=== PATIENT | female | born 1965 | race Caucasian/White ===

== ENCOUNTER 2023-04-24 09:46 | Emergency (ER) | payer MEDICARE, OTHER ==
[2023-04-24 10:04] VITALS: RESP 18
[2023-04-24] MEDS ORDERED: LIDOCAINE 5% PATCH TOPICAL ONE (10:18)
[2023-04-24] MEDS ORDERED: KETOROLAC 15 MG/ML 1 ML VIAL IM STA (10:18)
--- NOTE | 2023-04-24 10:55 | XR ---
EXAMINATION TYPE: XR ribs LT w pa chest xray DATE OF EXAM: 04/24/2023 10:31 AM CLINICAL INDICATION:Female, 58 years old with history of Pain; [facility] COMPARISON: Same day radiograph TECHNIQUE: XR ribs LT w pa chest xray; Frontal and oblique views of the ribs with frontal chest radio graph. FINDINGS: The ribs have a normal appearance. No evidence of fracture. Overall, the lungs are clear. The cardiac silhouette is normal in size. The remaining osseous structures are intact. IMPRESSION: No acute osseous pathology.
--- NOTE | 2023-04-24 10:55 | XR ---
EXAMINATION TYPE: XR thoracic spine complete DATE OF EXAM: 04/24/2023 10:31 AM CLINICAL INDICATION:Female, 58 years old with history of Pain; H COMPARISON: Radiograph same day TECHNIQUE: XR thoracic spine complete views of the thoracic spine in Frontal and lateral projections. FINDINGS: No evidence of acute fracture. There is scattered multilevel disk space narrowing without loss of ve rtebral body height. There is normal alignment of the thoracic vertebral bodies. Scattered osteophyte formation along the anterior and lateral aspects of the vertebral bodies. Neural foramen are patent given limitations of this exam. Spinal canal appears patent. Atherosclerosis of the arterial vasculat ure. Mild hepatomegaly. IMPRESSION: 1. No acute osseous pathology. 2. 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
--- NOTE | 2023-04-24 10:58 | ED ---
Back Pain HPI - General Chief Complaint: Back Pain/Injury Stated Complaint: Back Pain, mostly on L side Time Seen by Provider: 04/24/23 09:57 Source: patient, RN notes reviewed Mode of arrival: ambulatory Limitations: no limitations - History of Present Illness Initial Comments: This is a 58-year-old female who presents to the emergency department for pain on her left side. States that this started 1.5 weeks ago. She went through a bout of bronchitis and also lifted something heavy shortly before this occurred, however she denies any specific injuries. Denies any loss of bowel/bladder control or saddle anesthesia. Pain does not go down the leg. She is not taking anything for management of her symptoms. - Related Data Previous Rx's Medication Instructions Recorded Ketorolac [Toradol] 10 mg PO Q6HR PRN #15 tab 04/24/23 Lidocaine 5% Patch [Lidoderm 5% 1 patch TOPICAL DAILY PRN #30 patch 04/24/23 Patch] Allergies Allergy/AdvReac Type Severity Reaction Status Date / Time ampicillin Allergy Rash/Hives Verified 04/24/23 09:53 Review of Systems ROS Statement: Those systems with pertinent positive or pertinent negative responses have been documented in the HPI. ROS Other: All systems not noted in ROS Statement are negative. Past Medical History Past Medical History: No Reported History History of Any Multi-Drug Resistant Organisms: None Reported Past Surgical History: Section Past Psychological History: Anxiety, Depression Smoking Status: Current every day smoker Past Alcohol Use History: None Reported Past Drug Use History: None Reported General Exam Limitations: no limitations General appearance: alert, in no apparent distress Head exam: Present: atraumatic, normocephalic, normal inspection Respiratory exam: Present: normal lung sounds bilaterally. Absent: respiratory distress, wheezes, rales, rhonchi, stridor Cardiovascular Exam: Present: regular rate, normal rhythm, normal heart sounds. Absent: systolic murmur, diastolic murmur, rubs, gallop, clicks GI/Abdominal exam: Present: soft, normal bowel sounds. Absent: distended, tenderness, guarding, rebound, rigid Back exam: Present: other (Left side near the base of the left ribcage) Neurological exam: Present: alert, oriented X3, CN II-XII intact Psychiatric exam: Present: normal affect, normal mood Skin exam: Present: warm, dry, intact, normal color. Absent: rash Course Vital Signs 04/24/23 04/24/23 09:49 12:24 Temperature 98.8 F 98.6 F Pulse Rate 68 76 Respiratory 18 18 Rate Blood Pressure 148/81 130/68 O2 Sat by Pulse 100 99 Oximetry Medical Decision Making - Medical Decision Making This is a 58-year-old female who presents to the emergency department for left- sided pain. Was pt. sent in by a medical professional or institution? @ -No Did you speak to anyone other than the patient for history? @ -No Did you review nursing and triage notes? @ -I disagree with the part about it being in the left lower back, when asked where it is, patient points to her left side, essentially to the inferior and lateral most aspects of the left rib cage. Were old charts reviewed? @ -No Differential Diagnosis? @ -Differential Side Pain: Muscle strain, UTI, rib fracture, pancreatitis, this is not meant to be an all- inclusive list. EKG interpreted by me (3pts min.)? @ -Not obtained X-rays interpreted by me (1pt min.)? @ -X-ray of the left rib cage, AP chest, and thoracic spine obtained. My interpretation identifies no evidence of any fractures. CT interpreted by me (1pt min.)? @ -Not obtained U/S interpreted by me (1pt. min.)? @ -Not obtained What testing was considered but not performed? (CT, X-rays, U/S, labs)? Why? @ -None What meds were considered but not given? Why? @ -None Did you discuss the management of the patient with other professionals? @ -No Did you reconcile home meds? @ -No Was smoking cessation discussed for >3mins.? @ -No Was critical care preformed (if so, how long)? @ -No Were there social determinants of health that impacted care today? How? (Homelessness, low income, unemployed, alcoholism, drug addiction, transportation, low edu. Level, literacy, decrease access to med. care, care home, rehab)? @ -No Was there de-escalation of care discussed even if they declined? (Discuss DNR or withdrawal of care, Hospice)? @ -No What co-morbidities impacted this encounter? (DM, HTN, Smoking, COPD, CAD, Cancer, CVA, Hep., AIDS, mental health diagnosis, sleep apnea, morbid obesity)? @ -None Was patient admitted / discharged? @ -Discharged. X-ray of the left rib cage with AP chest and thoracic spine obtained revealing degenerative changes without any acute process. Urinalysis has blood, due to the patient being on her period. Denies any urinary symptoms. She was treated with Toradol and a lidocaine patch, and essentially had resolution of symptoms. Advised that this is most likely musculoskeletal in nature. Prescription for Toradol and lidocaine patches provided with dosing instructions reviewed. Patient discharged home in stable condition with instructions to follow up with her primary care provider. Undiagnosed new problem with uncertain prognosis? @ -None Drug Therapy requiring intensive monitoring for toxicity (Heparin, Nitro, Insulin, Cardizem)? @ -None Were any procedures done? @ -None Diagnosis/symptom? @ -Left side pain Acute, or Chronic, or Acute on Chronic? @ -Acute Uncomplicated (without systemic symptoms) or Complicated (systemic symptoms)? @ -Uncomplicated Side effects of treatment? @ -None Exacerbation, Progression, or Severe Exacerbation] @ -Not applicable Poses a threat to life or bodily function? @ -No Return precautions reviewed in depth, the patient is instructed to return to the emergency department with any new, worsening, or concerning symptoms. Patient verbalized understanding. This case was discussed in detail with the attending ED physician, Dr. Corona. Presentation, findings, and treatment plan discussed in detail as well. - Lab Data Lab Results 04/24/23 Range/Units 10:33 Urine Color Colorless Urine Appearance Clear (Clear) Urine pH 6.0 (5.0-8.0) Ur Specific [place] 1.006 (1.001-1.035) Urine Protein Negative (Negative) Urine Glucose (UA) Negative (Negative) Urine Ketones Negative (Negative) Urine Blood Large H (Negative) Urine Nitrite Negative (Negative) Urine Bilirubin Negative (Negative) Urine Urobilinogen <2.0 (<2.0) mg/dL Ur Leukocyte Esterase Negative (Negative) Urine RBC 148 H (0-5) /hpf Urine WBC 2 (0-5) /hpf Ur Squamous Epith Cells <1 (0-4) /hpf Urine Bacteria Rare H (None) /hpf Urine Mucus Rare H (None) /hpf - Radiology Data Radiology results: report reviewed, image reviewed Disposition Clinical Impression: Left-sided back pain Disposition: HOME SELF-CARE Instructions (If sedation given, give patient instructions): Thoracic Pain (ED) Additional Instructions: Return to the emergency department with any new, worsening, or concerning symptoms. Take the Toradol with Tylenol as needed for pain relief. If you choose to take the Toradol, do not take any other anti-inflammatories such as ibuprofen, take one or the other. You can apply the lidocaine patches daily as well. Follow up with your primary care provider in 1-2 days. Prescriptions: Lidocaine 5% Patch [Lidoderm 5% Patch] 1 patch TOPICAL DAILY PRN #30 patch PRN Reason: Pain Ketorolac [Toradol] 10 mg PO Q6HR PRN #15 tab PRN Reason: Pain Is patient prescribed a controlled substance at d/c from ED?: No Referrals: Nonstaff,Physician [REFERRING] - 1-2 days
[2023-04-24 12:18] LABS: Appearance,Urine Clear (Clear); Bacteria,Urine Rare /hpf; Bilirubin,Urine Negative (Negative); Blood,Urine Large (Negative); Color,Urine Colorless; Glucose,Urine (UA) Negative (Negative); Ketones,Urine Negative (Negative); Leukocyte Esterase,Urine Negative (Negative); Mucus,Urine Rare /hpf; Nitrite,Urine Negative (Negative); Protein,Urine Negative (Negative); RBC,Urine 148 /hpf (0-5); Specific Gravity,Urine 1.006 (1.001-1.035); Squamous Epithelial Cell,Urine <1 /hpf (0-4); Urobilinogen,Urine <2.0 mg/dL (<2.0); WBC,Urine 2 /hpf (0-5)
[2023-04-24 12:36] VITALS: BP 130/68; PULSE 76; TEMP 98.6
== END 2023-04-24 12:29 | disposition home or self-care (01) ==
LOC: EC 09:46
DX: M54.6 Pain in thoracic spine (principal); F17.200 Nicotine dependence, unspecified, uncomplicated; Z88.0 Allergy status to penicillin; X50.0XXA Overexertion from strenuous movement or load, initial encounter
CPT/HCPCS: 81001; 71101; 72072; 99284; 96372; J1885